=== PATIENT | male | born 1995 | race Caucasian/White ===

== ENCOUNTER 2018-04-26 17:46 | Emergency (ER) | payer OTHER ==
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
== END 2018-04-26 20:03 | disposition home or self-care (01) ==
LOC: ED 17:46
DX: R07.89 Other chest pain (principal)
CPT/HCPCS: 71250; 99282